=== PATIENT | male | born 1975 | race Caucasian/White ===

== ENCOUNTER 2016-08-14 13:53 | Inpatient (IN) | payer BC ==
[~2016-08-14] VITALS: Ht 182.9 cm; Wt 106.2 kg
[2016-08-14] VITALS (400 sets, daily range): BP systolic 103–115; BP diastolic 59–68; PULSE 92–101; TEMP 98.8–99.7; O2SAT 93–100
[2016-08-14] MEDS ORDERED: CYMBALTA 60MG60 MG PO (14:40)
[2016-08-14] MEDS ORDERED: TENORMIN 2525 MG/TAB PO (14:40)
[2016-08-14] MEDS ORDERED: KLONOPIN WAFER0.5 MG PO (14:41)
[2016-08-14] MEDS ORDERED: LIPITOR 40MG TA40 MG PO (14:41)
[2016-08-14] MEDS ORDERED: IMITREX100 MG PO (14:42)
[2016-08-14] MEDS ORDERED: LIPOFEN150 MG PO (14:42)
[2016-08-14] MEDS ORDERED: FLEXERIL 1010 MG/TAB PO (14:42)
[2016-08-14 14:43] LABS: MEAN CELL VOLUME 82 fl (80.0-100.0); MEAN CORPUSCULAR HGB CONC 33 g/dl (33.0-37.0); MEAN PLATELET VOLUME 8.7 fl (7.4-10.4); PLATELET COUNT 595 K/mm3 (130-400); RED BLOOD COUNT 2.61 M/mm3 (4.20-5.60); REDCELL DISTRIBUTION WIDTH-CV 13.7 % (11.5-14.5); WHITE BLOOD COUNT 16.6 K/mm3 (4.8-10.8)
[2016-08-14 14:46] LABS: INR 1.3 (0.8-3.0); PROTHROMBIN TIME 14.7 SECONDS (9.7-12.8)
[2016-08-14 14:50] LABS: HEMATOCRIT 21.4 % (42.0-52.0); MEAN CORPUSCULAR HEMOGLOBIN 27 pg (27.0-31.0)
[2016-08-14 14:51] LABS: ADD PATHOLOGY DIFF REVIEW NO
[2016-08-14 14:59] LABS: ADJUSTED CALCIUM 9.2 mg/dL (8.4-10.2); ALANINE AMINOTRANSFERASE 31 U/L (21-72); ALBUMIN 3.4 gm/dL (3.5-5.0); ALKALINE PHOSPHATASE 51 U/L (50-136); ANION GAP 13 mmol/L (7-16); BILIRUBIN,TOTAL 0.5 mg/dL (0.0-1.0); BLOOD UREA NITROGEN 32 mg/dL (9-20); CALCIUM 8.7 mg/dL (8.4-10.2); CARBON DIOXIDE 23 mmol/L (22-30); CHLORIDE 102 mmol/L (98-107); CREATINE KINASE 61 U/L (55-170); CREATININE, serum 1.05 mg/dL (0.66-1.25); GLUCOSE 87 mg/dL (74-106); POTASSIUM 4.5 mmol/L (3.4-5.0); SODIUM 138 mmol/L (137-145)
[2016-08-14 15:04] LABS: NEUTROPHILS 74 % (42.0-75.2); PLATELET ESTIMATE INCREASED (NORMAL); TOTAL CELLS COUNTED 100
[2016-08-14 15:11] LABS: TROPONIN-I < 0.012 ng/mL (0.000-0.034)
[2016-08-14 18:49] LABS: B-TYPE NATRIURETIC PEPTIDE 74 pg/mL (0-125)
[2016-08-15] VITALS (1101 sets, daily range): BP systolic 101–123; BP diastolic 50–636; PULSE 72–103; TEMP 97.9–99; O2SAT 78–100
[2016-08-15 05:45] LABS: HEMATOCRIT 23.3 % (42.0-52.0); HEMOGLOBIN 7.7 g/dl (13.5-18.0)
[2016-08-15 05:52] LABS: ANION GAP 11 mmol/L (7-16); BLOOD UREA NITROGEN 26 mg/dL (9-20); CALCIUM 8.4 mg/dL (8.4-10.2); CARBON DIOXIDE 24 mmol/L (22-30); CHLORIDE 106 mmol/L (98-107); CREATININE, serum 1.01 mg/dL (0.66-1.25); GLUCOSE 81 mg/dL (74-106); POTASSIUM 4.2 mmol/L (3.4-5.0); SODIUM 140 mmol/L (137-145)
[2016-08-15 06:04] LABS: TROPONIN-I < 0.012 ng/mL (0.000-0.034)
[2016-08-15 09:19] LABS: BASO % 0.1 % (0.0-2.0); EOS # 0.4 (0.0-0.7); EOS % 3.3 % (0-4.0); GRAN # 7.9 (1.4-6.5); GRAN % 62.4 % (42.2-75.2); LYMPH # 3.2 (1.2-3.4); LYMPH % 25.4 % (20.0-51.0); MEAN CELL VOLUME 85 fl (80.0-100.0); MEAN CORPUSCULAR HEMOGLOBIN 27 pg (27.0-31.0); MEAN CORPUSCULAR HGB CONC 32 g/dl (33.0-37.0); MEAN PLATELET VOLUME 9.4 fl (7.4-10.4); MONO # 1.1 (0.1-0.6); MONO % 8.4 % (1.7-9.3); RED BLOOD COUNT 2.81 M/mm3 (4.20-5.60); REDCELL DISTRIBUTION WIDTH-CV 14.4 % (11.5-14.5); WHITE BLOOD COUNT 12.6 K/mm3 (4.8-10.8)
[2016-08-15 09:22] LABS: PLATELET COUNT 460 K/mm3 (130-400)
[2016-08-15 11:19] LABS: HEMATOCRIT 22.9 % (42.0-52.0); HEMOGLOBIN 7.5 g/dl (13.5-18.0)
[2016-08-15 16:47] LABS: HEMATOCRIT 21.3 % (42.0-52.0)
[2016-08-16] VITALS (165 sets, daily range): BP systolic 96–122; BP diastolic 64–70; PULSE 80–86; TEMP 98–98.8; O2SAT 96–100
[2016-08-16 00:13] LABS: PH 6 (5-8); SQUAMOUS EPITHELIAL None Seen /hpf; URINE APPEARANCE Clear; URINE BACTERIA None Seen /hpf; URINE BILIRUBIN Negative (NEGATIVE); URINE BLOOD Negative (NEGATIVE); URINE COLOR Yellow; URINE GLUCOSE Negative (NEGATIVE); URINE KETONE Negative (NEGATIVE); URINE RBC 0-2 /hpf; URINE UROBILINOGEN Negative (NEGATIVE)
[2016-08-16 01:37] LABS: HEMATOCRIT 23.1 % (42.0-52.0); HEMOGLOBIN 7.8 g/dl (13.5-18.0)
[2016-08-16 06:12] LABS: BASO % 0.1 % (0.0-2.0); EOS # 0.6 (0.0-0.7); EOS % 5.3 % (0-4.0); GRAN # 6.2 (1.4-6.5); GRAN % 60.7 % (42.2-75.2); LYMPH # 2.6 (1.2-3.4); LYMPH % 24.8 % (20.0-51.0); MEAN CELL VOLUME 85 fl (80.0-100.0); MEAN CORPUSCULAR HGB CONC 33 g/dl (33.0-37.0); MEAN PLATELET VOLUME 8.3 fl (7.4-10.4); MONO # 0.9 (0.1-0.6); MONO % 8.6 % (1.7-9.3); PLATELET COUNT 372 K/mm3 (130-400); RED BLOOD COUNT 2.86 M/mm3 (4.20-5.60); REDCELL DISTRIBUTION WIDTH-CV 14.4 % (11.5-14.5); WHITE BLOOD COUNT 10.3 K/mm3 (4.8-10.8)
[2016-08-16 06:18] LABS: HEMATOCRIT 24.4 % (42.0-52.0); MEAN CORPUSCULAR HEMOGLOBIN 28 pg (27.0-31.0)
[2016-08-16 06:27] LABS: CALCIUM 8.4 mg/dL (8.4-10.2); CREATININE, serum 0.97 mg/dL (0.66-1.25)
[2016-08-16 13:35] LABS: HEMATOCRIT 25.6 % (42.0-52.0); HEMOGLOBIN 8.5 g/dl (13.5-18.0)
[2016-08-16] MEDS ORDERED: PROTONIX 40MG T40 MG PO (19:09)
== END 2016-08-16 20:13 | disposition home or self-care (01) | DRG 378 ==
LOC: COL.ER 13:53 → IMCU 15:36
PROVIDERS: Family Medicine; Internal Medicine Gastroenterology; Nurse Practitioner; Nurse Practitioner Family
PROC: 0DB68ZX Excision of Stomach, Via Natural or Artificial Opening Endoscopic, Diagnostic (ICD-10-PCS; principal; 2016-08-15 14:45)
DX: K25.4 Chronic or unspecified gastric ulcer with hemorrhage (principal); D62 Acute posthemorrhagic anemia; T39.315A Adverse effect of propionic acid derivatives, initial encounter; I25.10 Atherosclerotic heart disease of native coronary artery without angina pectoris; Z95.5 Presence of coronary angioplasty implant and graft
CPT/HCPCS: 99223-AI; 99233-AI; 99239; C9113; J2250; J2405; J3010; J7030; P9016

== ENCOUNTER → 2016-08-21 | Outpatient (CLI) | payer BC ==
[~2016-08-21] MED LIST: CYMBALTA 60MG60 MG PO; FLEXERIL 1010 MG/TAB PO; IMITREX100 MG PO; KLONOPIN WAFER0.5 MG PO; LIPITOR 40MG TA40 MG PO; LIPOFEN150 MG PO; PROTONIX 40MG T40 MG PO; TENORMIN 2525 MG/TAB PO
== END ==
LOC: BHSO 14:05
DX: F41.1 Generalized anxiety disorder (principal)

== ENCOUNTER → 2016-09-18 | Outpatient (CLI) | payer BC | LOC: BHSO 14:40 | DX: F33.41 Major depressive disorder, recurrent, in partial remission (principal) ==

== ENCOUNTER → 2016-10-03 | Outpatient (CLI) | payer BC | LOC: BHSO 14:58 | DX: F41.1 Generalized anxiety disorder (principal) ==

== ENCOUNTER → 2016-10-16 | Outpatient (CLI) | payer BC | LOC: BHSO 14:15 | DX: F33.41 Major depressive disorder, recurrent, in partial remission (principal) ==

== ENCOUNTER → 2016-10-27 | Outpatient (CLI) | payer BC | LOC: BHSO 12:57 | DX: F41.1 Generalized anxiety disorder (principal) ==

== ENCOUNTER → 2016-11-02 | Outpatient (CLI) | payer BC | LOC: BHSO 08:59 | DX: F33.1 Major depressive disorder, recurrent, moderate (principal) ==

== ENCOUNTER → 2016-11-16 | Outpatient (CLI) | payer BC | LOC: BHSO 13:02 | DX: F33.1 Major depressive disorder, recurrent, moderate (principal) ==

== ENCOUNTER → 2016-11-23 | Outpatient (CLI) | payer BC | LOC: BHSO 12:59 | DX: F33.1 Major depressive disorder, recurrent, moderate (principal) ==

== ENCOUNTER → 2016-12-13 | Outpatient (CLI) | payer BC | LOC: BHSO 14:22 | DX: F33.42 Major depressive disorder, recurrent, in full remission (principal) ==

== ENCOUNTER → 2016-12-14 | Outpatient (CLI) | payer BC | LOC: BHSO 12:55 | DX: F33.0 Major depressive disorder, recurrent, mild (principal) ==

== ENCOUNTER → 2016-12-29 | Outpatient (CLI) | payer BC | LOC: BHSO 12:49 | DX: F41.1 Generalized anxiety disorder (principal) ==

== ENCOUNTER → 2017-01-12 | Outpatient (CLI) | payer BC | LOC: BHSO 12:51 | DX: F41.1 Generalized anxiety disorder (principal) ==

== ENCOUNTER → 2017-02-16 | Outpatient (CLI) | payer BC | LOC: BHSO 14:57 | DX: F41.1 Generalized anxiety disorder (principal) ==

== ENCOUNTER → 2017-03-26 | Outpatient (CLI) | payer BC | LOC: BHSO 13:58 | DX: F33.42 Major depressive disorder, recurrent, in full remission (principal) ==

== ENCOUNTER → 2017-06-27 | Outpatient (CLI) | payer BC | LOC: BHSO 14:36 | DX: F33.42 Major depressive disorder, recurrent, in full remission (principal) ==

== ENCOUNTER → 2017-12-20 | Outpatient (CLI) | payer BC | LOC: BHSO 15:39 | DX: F33.42 Major depressive disorder, recurrent, in full remission (principal) | CPT/HCPCS: G0463 ==

== ENCOUNTER → 2018-08-16 | Outpatient (CLI) | payer BC | LOC: BHSO 13:31 | DX: F33.42 Major depressive disorder, recurrent, in full remission (principal) | CPT/HCPCS: G0463 ==

== ENCOUNTER → 2018-09-24 | Outpatient (CLI) | payer BC | LOC: COL.RAD 14:39 | DX: M75.101 Unspecified rotator cuff tear or rupture of right shoulder, not specified as traumatic (principal); S46.811A Strain of other muscles, fascia and tendons at shoulder and upper arm level, right arm, initial encounter ==

== ENCOUNTER → 2019-02-05 | Outpatient (CLI) | payer BC | LOC: BHSO 14:12 | DX: F33.42 Major depressive disorder, recurrent, in full remission (principal) | CPT/HCPCS: G0463 ==

== ENCOUNTER → 2019-07-14 | Outpatient (CLI) | payer BC | LOC: BHSO 13:11 | DX: F41.1 Generalized anxiety disorder (principal) | CPT/HCPCS: G0463 ==